=== PATIENT | male | born 1995 | race Caucasian/White ===

== ENCOUNTER → 2016-03-08 | Outpatient (CLI) | payer BC ==
[~2016-03-08] MED LIST: HYDR-5688 PO
--- NOTE | 2016-03-08 13:39 | DIAGNOSTIC IMAGING REPORT ---
LEFT SHOULDER 3 VIEWS HISTORY: LEFT SHOULDER PAIN COMPARISON: None. FINDINGS: There is no fracture or dislocation. Soft tissues are unremarkable. The left clavicle is intact. IMPRESSION: No fracture or dislocation within the left shoulder. Electronically signed by: Williams Valadez M.D. 03/08/2016 1:37 PM Dictated Date/Time: 03/08/2016 1:37 PM
== END | disposition home or self-care (01) ==
LOC: C.RDSM 14:11
PROVIDERS: ATTEND Family Medicine
DX: M25.512 Pain in left shoulder (principal)